=== PATIENT | female | born 1960 | race Caucasian/White ===

== ENCOUNTER 2016-09-21 17:47 | Emergency (ER) | payer BC ==
[2016-09-21 18:05] VITALS: BP 127/72
--- NOTE | 2016-09-21 18:16 | UC ---
Skin Complaint HPI - HPI Summary HPI Summary: PT NOTICED A PAINFUL RASH BACK OF LEFT SHOULDER PAST COUPLE OF DAYS. NOT ITCHY. NO FEVER OR MYALGIAS. - History of Current Complaint Chief Complaint: UCRash Time Seen by Provider: 09/21/16 18:06 Stated Complaint: rash Hx Obtained From: Patient Hx Last Menstrual Period: 1 MONTH AGO Onset/Duration: Sudden Onset, Lasting Days, Still Present Timing: Constant Onset Severity: Moderate Current Severity: Moderate Pain Intensity: 3 Pain Scale Used: 0-10 Numeric Location: Discrete - POSTERIOR LEFT SHOULDER Aggravating: Touch Alleviating: Nothing Associated Signs & Symptoms: Positive: Rash, Tenderness - Allergy/Home Medications Allergies/Adverse Reactions: Allergies Allergy/AdvReac Type Severity Reaction Status Date / Time No Known Allergies Allergy Verified 09/21/16 18:05 Review of Systems Constitutional: Negative Skin: Rash Respiratory: Negative Cardiovascular: Negative Gastrointestinal: Negative All Other Systems Reviewed And Are Negative: Yes PMH/Surg Hx/FS Hx/Imm Hx Previously Healthy: Yes - Surgical History Surgical History: Yes Surgery Procedure, Year, and Place: wisdom teeth - Family History Known Family History: Positive: Hypertension - Social History Alcohol Use: Occasionally Substance Use Type: None Smoking Status (MU): Never Smoked Tobacco - Immunization History Most Recent Tetanus Shot: UTD Physical Exam Triage Information Reviewed: Yes Appearance: Well-Appearing, No Pain Distress, Well-Nourished Vital Signs: Initial Vital Signs Temp 98.1 F 09/21/16 18:02 Pulse 73 09/21/16 18:02 Resp 16 09/21/16 18:02 BP 127/72 09/21/16 18:02 Pulse Ox 99 09/21/16 18:02 Vital Signs Reviewed: Yes Eyes: Positive: Conjunctiva Clear ENT: Positive: Hearing grossly normal Neck: Positive: Supple Respiratory: Positive: No respiratory distress, No accessory muscle use Cardiovascular: Positive: Pulses Normal Abdomen Description: Positive: Soft Musculoskeletal: Positive: No Edema Neurological: Positive: Alert Psychological: Positive: Age Appropriate Behavior Skin: Positive: rashes - 3 CLUSTERS OF VESICLES LEFT POSTERIOR SHOULDER WITH SLIGHT SURROUNDING ERYTHEMA. MILDLY TENDER. NO EXCORIATION. Course/Dx - Course Course Of Treatment: PT DECLINES TREATMENT WITH ANTIVIRAL. STATES THE PAIN IS TOLERABLE AND SHE DOES NOT LIKE TO TAKE MEDICINE. - Diagnoses Provider Diagnoses: SHINGLES Discharge - Discharge Plan Condition: Stable Disposition: HOME Patient Education Materials: Shingles (ED) Referrals: Lucia Pabon MD [Primary Care Provider] - If Needed
== END 2016-09-21 18:20 | disposition home or self-care (01) ==
LOC: UCEAST 17:47
DX: B02.9 Zoster without complications (principal)
CPT/HCPCS: 99211; G0463

== ENCOUNTER 2018-02-10 09:10 | Emergency (ER) | payer BC ==
--- OUTSIDE RECORDS SUMMARY | 2018-02-10 09:46 | XMS REPORT ---
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 Strength Tester Unavailable Lucia Bird MD Primary Care Physician Unavailable Payers Type Date Identification Numbers Payment Provider Subscriber Commercial Expires: Policy Number: Mariam ASHLEY De Luna 2012 [id number] Group Number: [id number] [address] [address] PayID: [id number] [place] [address] Medigap Part B Policy Number: [id number] [facility] Demar Crump PayID: [id number] [address] [place] [address] Problems Date Description Provider Status Onset: 06/25/2013 Aortic valve disorder Marcelo Colon M.D., [facility], Active [facility] Onset: 06/25/2013 Mitral valve disorder Marcelo Colon M.D., [facility], Active [facility] Onset: 01/03/2015 Aortic valve stenosis with Marcelo Colon M.D., [facility], Active insufficiency [facility] Family History Date Family Member(s) Problem(s) Comments General Heart Disease Social History Type Date Description Comments Marital Status Lives With Lives With Children 3 Occupation Currently Working [employer] Cigarette Use Never Smoked Cigarettes ETOH Use Currently consumes alcohol ETOH Use Occasionally consumes alcohol Smoking Patient has never smoked Recreational Drug Use Denies Drug Use Daily Caffeine Consumes on average 1 cup of regular coffee per day Exercise Type/Frequency Exercises regularly daily for about 1 hour Allergies, Adverse Reactions, Alerts Date Description Reaction Status Severity Comments 06/25/2013 NKDA active Medications Medication Date Status Form Strength Qnty SIG Indications Ordering Provider Metoprolol Active Tablets ER 25mg 30tabs 1 tab by Jefftakristen SYee Succinate ER 013 24HR mouth Maghaydah, every M.D. day Amlodipine 000 Active Tablets 10mg 90tabs 1 by Marcelo Velasco 000 mouth Stefek, every M.D., FACC, day [facility] Vital Signs Date Vital Result Comment 01/24/2018 Height 65 inches 5'5" Weight 125.00 lb with shoes Heart Rate 93 /min BP Systolic Sitting [address] reg cuff BP Diastolic Sitting 72 mmHg rue reg cuff BP Systolic Standing 124 [address] reg cuff BP Diastolic Standing 70 mmHg rue reg cuff BMI (Body Mass Index) 20.8 kg/m2 Ejection Fraction 60-70% 01/24/2018 Height 65 inches 5'5" Weight 124.00 lb w/ shoes. BMI (Body Mass Index) 20.6 kg/m2 02/25/2017 Height 65 inches 5'5" Weight 125.00 lb w/shoes Heart Rate 84 /min BP Systolic Sitting 136 mmHg BP Diastolic Sitting 78 mmHg BP Systolic Standing 140 [address] reg cuff BP Diastolic Standing 82 mmHg rue reg cuff Respiratory Rate 18 /min BMI (Body Mass Index) 20.8 kg/m2 Ejection Fraction 65-70% echo 02/13/17 07/23/2016 Height 65 inches 5'5" Weight 124.38 lb with shoes Heart Rate 82 /min BP Systolic Sitting 134 mmHg LA reg cuff BP Diastolic Sitting 80 mmHg LA reg cuff BP Systolic Standing 132 mmHg LA reg cuff BP Diastolic Standing 80 mmHg LA reg cuff BMI (Body Mass Index) 20.7 kg/m2 Ejection Fraction 60% - 65% echo 06/04/2016 Height 65 inches 5'5" Weight 125.00 lb w/ shoes Heart Rate 84 /min reg BP Systolic Sitting 132 mmHg Rue, reg cuff BP Diastolic Sitting 80 mmHg Rue, reg cuff BP Systolic Standing 136 mmHg Rue BP Diastolic Standing 84 mmHg Rue Respiratory Rate 16 /min BMI (Body Mass Index) 20.8 kg/m2 Ejection Fraction 60-65% as of 12/18/15 echo 12/08/2015 Height 65 inches 5'5" Weight 122.12 lb with shoes Heart Rate 70 /min 72 sit and stand HR BP Systolic Sitting 126 mmHg LA reg cuff BP Diastolic Sitting 70 mmHg LA reg cuff BP Systolic Standing 120 mmHg LA reg cuff BP Diastolic Standing 78 mmHg LA reg cuff Respiratory Rate 17 /min BMI (Body Mass Index) 20.3 kg/m2 Ejection Fraction 60-65% date 06/10/15 ECHO 06/20/2015 Height 65 inches 5'5" Weight 127.00 lb with shoes Heart Rate 84 /min 84 BP Systolic Sitting 142 mmHg left arm, reg cuff BP Diastolic Sitting 84 mmHg left arm, reg cuff BP Systolic Standing 130 mmHg left arm, reg cuff BP Diastolic Standing 84 mmHg left arm, reg cuff Respiratory Rate 14 /min BMI (Body Mass Index) 21.1 kg/m2 Ejection Fraction 60-65% 06/10/15 01/03/2015 Height 65 inches 5'5" Weight 121.12 lb with shoes Heart Rate 80 /min BP Systolic Sitting 140 mmHg LA reg cuff BP Diastolic Sitting 80 mmHg LA reg cuff BP Systolic Standing 140 mmHg LA reg cuff BP Diastolic Standing 76 mmHg LA reg cuff Respiratory Rate 17 /min BMI (Body Mass Index) 20.2 kg/m2 Ejection Fraction 60-65% date 05/24/14 ECHO 11/22/2014 Height 65 inches 5'5" Weight 122.00 lb Heart Rate 72 /min BP Systolic Sitting 104 mmHg BP Diastolic Sitting 71 mmHg Pain Level 0 BMI (Body Mass Index) 20.3 kg/m2 11/03/2014 Height 65 inches 5'5" Weight 122.00 lb Pain Level 0 BMI (Body Mass Index) 20.3 kg/m2 10/04/2014 Height 65 inches 5'5" Weight 122.00 lb Pain Level 2 BMI (Body Mass Index) 20.3 kg/m2 09/27/2014 Height 65 inches 5'5" Weight 122.00 lb Heart Rate 84 /min BP Systolic 140 mmHg BP Diastolic 79 mmHg BMI (Body Mass Index) 20.3 kg/m2 06/24/2014 Height 64.5 inches 5'4.50" Weight 123.00 lb Heart Rate 80 /min 80 BP Systolic Sitting 128 mmHg right arm, reg cuff BP Diastolic Sitting 68 mmHg right arm, reg cuff BP Systolic Standing 120 mmHg right arm, reg cuff BP Diastolic Standing 64 mmHg right arm, reg cuff Respiratory Rate 14 /min BMI (Body Mass Index) 20.8 kg/m2 12/14/2013 Height 64.5 inches 5'4.50" Weight 121.00 lb Heart Rate 80 /min 86 BP Systolic Sitting 142 mmHg left arm, reg cuff BP Diastolic Sitting 90 mmHg left arm, reg cuff BP Systolic Standing 124 mmHg left arm, reg cuff BP Diastolic Standing 86 mmHg left arm, reg cuff Respiratory Rate 16 /min BMI (Body Mass Index) 20.4 kg/m2 06/25/2013 Height 64.5 inches 5'4.50" Weight 121.00 lb Heart Rate 100 /min sit 104 stand BP Systolic Sitting 152 mmHg LA reg cuff BP Diastolic Sitting 90 mmHg LA reg cuff BP Systolic Standing 148 mmHg LA BP Diastolic Standing 90 mmHg LA Respiratory Rate 16 /min BMI (Body Mass Index) 20.4 kg/m2 Results Description No Information Procedures Date CPT Code Description Status 03/11/2017 90005 Stress ECHO Interpretation/Report Hospital Completed 03/11/2017 49142 Treadmill Interp/Report Only Completed 03/11/2017 83842 Stress Test Supervsn W/Out I/R Completed 02/13/2017 14711 ECHO Transthoracic, Real-Time 2D With Doppler And Color Completed Flow 02/13/2017 29055 ECHO Transthoracic, Real-Time 2D With Doppler And Color Completed Flow 08/15/2016 16828 ECHO Stress Test Incl Perf Contiuous ekg Monitoring Completed W/Phys Superv 06/15/2016 09629 ECHO Transthoracic, Real-Time 2D With Doppler And Color Completed Flow 12/15/2015 78745 ECHO Transthoracic, Real-Time 2D With Doppler And Color Completed Flow 12/08/2015 66826 EKG Tracing & Interpretation Completed 06/10/2015 54103 ECHO Transthoracic, Real-Time 2D With Doppler And Color Completed Flow 01/03/2015 39895 EKG Tracing & Interpretation Completed 09/27/2014 87555 CLST TRMT Distal Radial FX Completed 07/21/2014 91902 Stress Test Supervsn W/Out I/R Completed 07/21/2014 83012 Treadmill Interp/Report Only Completed 06/24/2014 99994 EKG Tracing & Interpretation Completed 05/24/2014 65141 ECHO Transthoracic, Real-Time 2D With Doppler And Color Completed Flow 12/14/2013 99715 EKG Tracing & Interpretation Completed 12/10/2013 99192 ECHO Transthoracic, Real-Time 2D With Doppler And Color Completed Flow 06/25/2013 32310 EKG Tracing & Interpretation Completed 06/03/2013 65310 ECHO Transthoracic, Real-Time 2D With Doppler And Color Completed Flow 11/21/2012 80998 Color Flow Doppler/Interp & Reprt Completed 11/21/2012 77787 Pulse Wave/Continuous-Interp.RPT Completed 11/21/2012 26623 Echocardiography, Transesophageal, Real Time W/Image 2D Completed W/W/O M-M 10/10/2012 40293 ECHO Transthoracic, Real-Time 2D With Doppler And Color Completed Flow 10/07/2012 16677 EKG Tracing & Interpretation Completed Encounters Type Date Location Provider CPT E/M Dx Office Visit 02/25/2017 [facility] Marcelo Colon M.D., 74098 I35.2 3:40p 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 [facility] I71.2 Office Visit 07/23/2016 3:40p [facility] Mimi Colon M.D., 03984 I35.0 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 [facility] I35.1 Office Visit 06/04/2016 3:40p [facility] Mimi Colon M.D., 17611 I35.0 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 [facility] I35.1 Office Visit 12/08/2015 4:00p [facility] Mimi Colon M.D., 46183 I35.0 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 [facility] I35.1 Office Visit 06/20/2015 4:00p [facility] Mimi Colon M.D., 89347 I35.2 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 [facility] Office Visit 01/03/2015 4:00p [facility] Mimi Colon M.D., 48458 I35.2 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 [facility] I34.0 Office Visit 06/24/2014 2:40p [facility] Mimi Colon M.D., 60089 424.1 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 [facility] Office Visit 12/14/2013 3:40p [facility] Mimi Colon M.D., 94591 424.1 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 [facility] 424.0 Office Visit 06/25/2013 3:30p [facility] Mimi Colon M.D., 53408 424.1 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 [facility] 424.0 Office Visit 12/04/2012 2:00p [facility] Marcelo Colon M.D., 93503 424.1 [facility] Office Visit 10/14/2012 3:45p [facility] Marcelo Colon M.D., 74265 424.1 [facility] Office Visit 10/07/2012 4:00p [facility] Marcelo Colon M.D., 67252 424.1 [facility] 424.0 Plan of Care Future Appointment(s):02/11/2018 3:00 pm - [facility] ECHO Schedule at [facility]01/24/2018 - Chin Rendon, DO FACCI35.0 Nonrheumatic aortic (valve) stenosisNew Orders:EchocardiogramComments:Your brothers, sister and children (all first degree relatives) should have an echocardiogram if they have not already.Follow up:f/u 6 months (does not need an ekg)I35.2 Nonrheumatic aortic (valve) stenosis with insufficiency
[2018-02-10 09:47] VITALS: BP 119/71
--- NOTE | 2018-02-10 10:15 | UC ---
Respiratory Complaint HPI - HPI Summary HPI Summary: Patient presents with a past medical history of MVP, and heart murmur. HTN. She presents today with 6 day onset cough and chest congestion. She anso reports swellig around her left eye, with small amount of yellow drainage. She denies eye pain, or change in her vision. She denies ny ear pain, resolving runny nose. Denies chest pain, shortness of breath, wheezing, or swelling of her legs. - History of Current Complaint Chief Complaint: UCRespiratory Stated Complaint: COUGH, EYE DRAINAGE Time Seen by Provider: 02/10/18 10:03 Hx Obtained From: Patient Hx Last Menstrual Period: 1 MONTH AGO Onset/Duration: Gradual Onset, Lasting Days Timing: Intermittent Episodes Pain Intensity: 0 Character: Cough: Nonproductive Aggravating Factors: Nothing Alleviating Factors: Nothing Associated Signs And Symptoms: Positive: URI, Nasal Congestion - Risk Factors Pulmonary Embolism Risk Factors: Negative Cardiac Risk Factors: Negative Tuberculosis Risk Factors: Negative - Allergies/Home Medications Allergies/Adverse Reactions: Allergies Allergy/AdvReac Type Severity Reaction Status Date / Time No Known Allergies Allergy Verified 02/10/18 09:47 PMH/Surg Hx/FS Hx/Imm Hx Previously Healthy: Yes Cardiovascular History: Other - MMP Heart Murmur - Surgical History Surgical History: Yes Surgery Procedure, Year, and Place: wisdom teeth - Family History Known Family History: Positive: Hypertension - Social History Lives: Alone Alcohol Use: Weekly Substance Use Type: None Smoking Status (MU): Never Smoked Tobacco - Immunization History Most Recent Tetanus Shot: UTD Review of Systems All Other Systems Reviewed And Are Negative: Yes Constitutional: Positive: Negative Skin: Positive: Negative Eyes: Positive: Drainage ENT: Positive: Sinus Congestion Respiratory: Positive: Cough Cardiovascular: Positive: Negative Gastrointestinal: Positive: Negative Genitourinary: Positive: Negative Motor: Positive: Negative Neurovascular: Positive: Negative Musculoskeletal: Positive: Negative Neurological: Positive: Negative Psychological: Positive: Negative Physical Exam Triage Information Reviewed: Yes Appearance: Well-Appearing Vital Signs: Initial Vital Signs Temp 97.5 F 02/10/18 09:44 Pulse 72 02/10/18 09:44 Resp 18 02/10/18 09:44 BP 119/71 02/10/18 09:44 Pulse Ox 100 02/10/18 09:44 Vital Signs Reviewed: Yes Eye Exam: Other - slight soft tissue swelling of the upper eye lid. no drainage. ENT Exam: Normal Neck exam: Normal Neck: Positive: 1 Respiratory Exam: Normal Cardiovascular Exam: Normal Abdominal Exam: Normal Musculoskeletal Exam: Normal Neurological Exam: Normal Psychological Exam: Normal Skin Exam: Normal UC Diagnostic Evaluation - Laboratory O2 Sat by Pulse Oximetry: 100 Respiratory Course/Dx - Course Course Of Treatment: Patient presents with a past medical history of MVP, and heart murmur. She presents today with 6 day onset cough and develop some swelling of her left eye and reported drainage today. Due to her cardiac condition she will be treated with zpk, and I do not feel that she needs any antiobiotic eye drops at this time. This is most likely viral conjunctivitis and will continue to conservative measures of warm compresses. If for any reason her eye complaints shuould get any worse she was told to follow up with her PCP. She verbalized understanding of and in agreement with the discharge plan. - Differential Dx/Diagnosis Differential Diagnosis/HQI/PQRI: Bronchitis, Other - viral conjunctivitis Provider Diagnoses: Bronchitis. viral conjunctivitis Discharge - Sign-Out/Discharge Documenting (check all that apply): Patient Departure All imaging exams completed and their final reports reviewed: No Studies - Discharge Plan Condition: Stable Disposition: HOME Prescriptions: Azithromycin TAB* [Zithromax TAB (Z-TEJAS) 250 mg #6 tabs] 250 mg PO DAILY #6 tab Patient Education Materials: Acute Bronchitis (ED), Conjunctivitis (ED) Referrals: Lucia Pabon MD [Primary Care Provider] - Additional Instructions: The conjunctivitis is viral and I do not feel that antibiotic eye drops are indicated at this time, but if the symptoms should get worse I would contact your PCP at once. - Billing Disposition and Condition Condition: STABLE Disposition: Home - Attestation Statements Scribe Documentation Reviewed: No Provider Attestation: Per institutional requirements, I have reviewed the chart, however, I was not consulted specifically or made aware of this patient by the midlevel provider. I did not personally evaluate, interact with , or disposition this patient.
== END 2018-02-10 10:15 | disposition home or self-care (01) ==
LOC: UCEAST 09:10
DX: J40 Bronchitis, not specified as acute or chronic (principal); B30.9 Viral conjunctivitis, unspecified; I10 Essential (primary) hypertension
CPT/HCPCS: 99212; G0463

== ENCOUNTER 2018-11-14 17:43 | Emergency (ER) | payer BC, OTHER ==
[2018-11-14 18:07] VITALS: BP 132/73
--- NOTE | 2018-11-14 18:09 | UC ---
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 it still is itching and she continues to see the redness Pleasant 58 yo female with BLE and buttock redness, pururitis. Sx progressively worse over the last week. [place] swim in the [place]. Thinks she might have been exposed to something like poison evy, but does not recall precise inciting event. No fever / chills. No cough / sob. No GI Issues. No ENT issues. No adenopathy. Has been using otc poison evy soap with cream. Took antihist x 1/2 yesterday (didn't help). - History of Current Complaint Chief Complaint: Adan Stated Complaint: POISON EVY Time Seen by Provider: 11/14/18 18:08 Hx Obtained From: Patient Hx Last Menstrual Period: menopause Pain Intensity: 10 - Allergy/Home Medications Allergies/Adverse Reactions: Allergies Allergy/AdvReac Type Severity Reaction Status Date / Time No Known Allergies Allergy Verified 08/15/18 15:08 Home Medications: Home Medications Cetirizine HCl [Zyrtec] 11/14/18 [History] PMH/Surg Hx/FS Hx/Imm Hx Previously Healthy: Yes - Surgical History Surgical History: Yes Surgery Procedure, Year, and Place: wisdom teeth - Family History Known Family History: Positive: Hypertension - Social History Alcohol Use: Weekly Substance Use Type: None Smoking Status (MU): Never Smoked Tobacco - Immunization History Most Recent Tetanus Shot: UTD Review of Systems All Other Systems Reviewed And Are Negative: Yes Constitutional: Positive: Negative Skin: Positive: Other - see hpi Eyes: Positive: Negative ENT: Positive: Negative Respiratory: Positive: Negative Cardiovascular: Positive: Negative Gastrointestinal: Positive: Negative Genitourinary: Positive: Other - see hpi Motor: Positive: Negative Neurovascular: Positive: Negative Musculoskeletal: Positive: Negative Neurological: Positive: Negative Psychological: Positive: Negative Is Patient Immunocompromised?: No Physical Exam Triage Information Reviewed: Yes Appearance: Well-Appearing, Well-Nourished Vital Signs: Initial Vital Signs Temp 99.3 F 11/14/18 18:01 Pulse 81 11/14/18 18:01 Resp 16 11/14/18 18:01 BP 132/73 11/14/18 18:01 Pulse Ox 100 11/14/18 18:01 Vital Signs Reviewed: Yes Eye Exam: Normal ENT Exam: Normal Neck exam: Normal Neck: Positive: Supple Respiratory Exam: Normal - RR normal, no dyspnea, no tachypnea Cardiovascular Exam: Normal - HR normal. Nondiaphoretic Abdominal Exam: Normal - grossly benign Musculoskeletal Exam: Normal - see skin Neurological Exam: Normal - grossly nonfocal Psychological Exam: Normal - conversing easily and appropriately.nad. Skin Exam: Other - Thighs, buttocks, and lower legs + red dermatitis. + excoriation, blisters at sweaty / shearing areas (not grossly purulent) Course/Dx - Course Course Of Treatment: Dermatitis and rash areas have a significant dermatitic component. However, additional factors such as sweaty / shearing forces contribute. Redness in upper inner thighs concerning for secondary cellulitis bacterial. Reviewed instructions (see avs). Will f/u pcp next week. Advised not to swim in the [place] until symptoms are gone. Questions as posed answerd to the best of my ability. - Diagnoses Provider Diagnosis: Dermatitis, Cellulitis Discharge - Sign-Out/Discharge Documenting (check all that apply): Patient Departure All imaging exams completed and their final reports reviewed: No Studies - Discharge Plan Condition: Stable Disposition: HOME Prescriptions: DOXYcycline CAP(*) [DOXYcycline 100MG CAP(*)] 100 mg PO BID #14 cap predniSONE TAB* [Deltasone 10 MG TAB*] 10 mg PO DAILY #15 tab Patient Education Materials: Antihistamine (By mouth), Prednisone (By mouth), Cellulitis (ED), Dermatitis (ED) Referrals: Lucia Pabon MD [Primary Care Provider] - Additional Instructions: Hydrate. Care to avoid prolonged direct sun exposure while taking antibiotics. Please follow up with your primary care physician for recheck next week, if possible. Seek medical attention for worse or new problems in the meantime. *In order to maximize absorption of antibioitic, please do not take the antibiotic within 2 hours of taking calcium and vitamin d supplement* Check with your pharmacist for details. Avoid: Hot showers Astringents (no rubbing alcohol, chlorine, etc) Double rinse clothing and use hypoallergic laundry soap. Hydrocortisone 1% cream sparingly (avoid mucus membranes) as needed for itching , packaging instructions. Unscented moisturizer to dry skin as needed. Clotrimazole 1% cream (vaginal yeast medication), as needed if vaginal yeast infection occurs. - Billing Disposition and Condition Condition: STABLE Disposition: Home
== END 2018-11-14 18:57 | disposition home or self-care (01) ==
LOC: UCEAST 17:43
DX: L23.7 Allergic contact dermatitis due to plants, except food (principal); L03.116 Cellulitis of left lower limb; L03.115 Cellulitis of right lower limb
CPT/HCPCS: 99212; G0463